=== PATIENT | female | born 1980 | race Caucasian/White ===

== ENCOUNTER 2021-12-05 15:42 | Inpatient (IN) ==
[2021-12-05] MEDS ORDERED: ZOFRAN INJ 4 MG VIAL IVP ONE ×2 (15:57→17:51)
[2021-12-05] MEDS ORDERED: NS 1,000 ML IV 1,000 ML IV ONE (15:57)
[2021-12-05] MEDS ORDERED: ZOFRAN INJ 4 MG VIAL ONE ×2 (15:59→17:45)
[2021-12-05] MEDS ORDERED: NS 1,000 ML IV 1,000 ML ONE (15:59)
[2021-12-05] MEDS ORDERED: DEMEROL INJ IVP ONE (16:06)
--- NOTE | 2021-12-05 16:06 | DR.NAUSEAF ---
HPI Time Seen Time Seen by Provider: 12/05/21 16:04 Primary Care Physician Primary Care Physician: Rodrick [place] Complaints Chief Complaint Doctors Comments: NAUSEA AND VOMITING WITH EPIGASTRIC PAIN RADIATING TO R SHOULDER FOR 2 WEEKS. WAS GIVEN TORADOL AND PHERGAN IN PCP OFFICE TODAY WITH NO RELIEF Chief Complaint:: Pt c/o nausea x 2 weeks. She states she began vomiting and having pain in chest through to back between shoulders x 2 days ago. Pt was seen by pcp this am and given toradol and phenergan im. COVID-19 Coronavirus risk:travel/contact w/high risk person: No Has patient experienced Coronavirus symptoms: No Source History Provided: Patient Mode of Arrival Mode of Arrival: Ambulatory Timing Onset of Chief Complaint: 12/04/21 PMH PMH Past Medical History: Yes Past Medical History: Hypertension Past Surgical History: Yes Surgical History: and Tonsillectomy Family History History of Family Medical Conditions: Yes Family Medical History: Coronary Artery Disease Social History Does patient currently use any type of tobacco product: No Have you used tobacco products in the last 12 months: No Type of Tobacco Use: None Does any household member use tobacco: No Alcohol Use: Occasionally Do you use any recreational Drugs:: No Lives With: Family Lives Where: Home Travel Risk Coronavirus risk:travel/contact w/high risk person: No Has patient experienced Coronavirus symptoms: No Infectious screening In the last 2 months have you had wt loss of >10#?: NO Have you had fever, night sweats or hemotysis?: No Have you traveled outside the country in the last 6 months?: No Isolation: Standard PE Vital Signs Vitals: Temperature 98.2 F Pulse Rate 62 Respiratory Rate 20 Blood Pressure 176/104 O2 Sat by Pulse Oximetry 99 General General Appearance: Alert, In No Apparent Distress and In Distress (SEVERE DIST RESS) Head Head Exam: Normal Inspection Eyes Eye exam: Normal Appearance ENT ENT Exam: Normal Exam Neck Neck Exam: Normal Inspection Chest Chest Inspection: Normal Inspection Respiratory Respiratory Exam: Normal Lung Sounds Bilat Respiratory Exam: Bilateral: Clear to Auscultation Cardiovascular Cardiovascular Exam: Regular Rate and Normal Rhythm Abdominal Exam Abdominal Exam: Normal Inspection, Normal Bowel Sounds, Soft and Tenderness (TENDERNESS UPON PALPATION OF EPIGASTRIUM) Rectal Rectal Exam: Deferred External Exam: Female: Deferred : Speculum Exam (Female): Deferred : Bimanual Exam (female): Deferred Extremities Extremities Exam: Normal Inspection Back Back Exam: Normal Inspection Neurologic Neurological Exam: Alert and Oriented X3 Psychiatric Psychiatric Exam: Normal Affect and Normal Mood Skin Skin Exam: Warm, Dry, Intact and Normal Color MDM Additional Information Obtained Additional Findings:: ABDOMINAL PAIN, PANCREATITIS,ANTHRITIS Differential Diagnosis Differential Diagnosis: Considerations may Include:: Gastritis, Pancreatitis and Other (ANTHRITIS,GASTRITIS,PANCREATITIS,INTRACTABLE NAUSEA AND VOMITING) COURSE Treatment Treatment: PATIENT CONTINUED TO HAVE INTRACTABLE NAUSEA AND VOMITING AND ABDOMINAL PAIN. WAS GIVEN 6MG OF MSO4 AND 25MG OF DEMEROL WITH SOME RELIEF OF PAIN. WAAS GIVEN ZOFRAN 8MG IV AND PHENERGAN 25MG IM FOR NAUSEA WITH SOME RELIEF. AMYLASE AND LIPASE WERE ELEVATED AND ULTRASOUND OF GALLBLADDER DID NOT SHOW STONES. CT OF ABD AND PELVIS SHOWED SEVERE ANTHRITIS AND SWELLING OF GALLBLADDER. CONTACT WAS MADE WITH DR WELLINGTON MORAN AND HE STATED TO ADMIT THE PATIENT FOR PANCREATITIS AND KEEP NPO AND GIVE PROTONIX 40 MG IV Q 12 HOURS AND GIVE MEDICATIONS FOR PAIN AND NAUSEA AND HE WILL PROBABLY SCOPE THE PATIENT TOMORROW. ROR Labs Reviewed Laboratory Results Reviewed?: Yes Result Diagrams: 12/05/21 16:07 12/05/21 16:07 Laboratory: WBC 11.1 X10^3/uL (3.6-10.0) H 12/05/21 16:07 RBC 5.48 X10^6/uL (3.5-5.4) H 12/05/21 16:07 Hgb 16.7 g/dL (12.0-16.0) H 12/05/21 16:07 Hct 47.0 % (36.0-47.0) 12/05/21 16:07 MCV 85.7 fL (80.0-100.0) 12/05/21 16:07 MCH 30.4 pg (27.0-34.0) 12/05/21 16:07 MCHC 35.5 g/dL (33.0-35.0) H 12/05/21 16:07 RDW 13.1 % (11.6-16.5) 12/05/21 16:07 Plt Count 196 X10^3/uL (150.0-450.0) 12/05/21 16:07 MPV 10.2 fL (7.4-11.0) 12/05/21 16:07 Neut % (Auto) 62.7 % (42.0-75.0) 12/05/21 16:07 Lymph % (Auto) 25.2 % (21.0-51.0) 12/05/21 16:07 Kern % (Auto) 10.7 % (0.0-13.0) 12/05/21 16:07 Eos % (Auto) 0.8 % (0.9-2.9) L 12/05/21 16:07 Baso % (Auto) 0.6 % (0.2-1.0) 12/05/21 16:07 Neut # (Auto) 7.0 x10^3/uL (2.2-4.8) H 12/05/21 16:07 Lymph # (Auto) 2.8 X10^3/uL (1.3-2.9) 12/05/21 16:07 Kern # (Auto) 1.2 x10^3/uL (0.3-0.8) H 12/05/21 16:07 Eos # (Auto) 0.1 x10^3/uL (0.0-0.2) 12/05/21 16:07 Baso # (Auto) 0.1 X10^3/uL (0.0-0.1) 12/05/21 16:07 Absolute Nucleated RBC 0.2 /100WBC 12/05/21 16:07 Sodium 139 mmol/L (136-145) 12/05/21 16:07 Corrected Sodium TNP 12/05/21 16:07 Potassium 3.3 mmol/L (3.5-5.1) L 12/05/21 16:07 Chloride 102 mmol/L (98-107) 12/05/21 16:07 Carbon Dioxide 25.9 mmol/L (21-32) 12/05/21 16:07 BUN 14 mg/dL (7-18) 12/05/21 16:07 Creatinine 1.05 mg/dL (0.55-1.02) H 12/05/21 16:07 Est GFR (MDRD) Af Amer > 60 (>60) 12/05/21 16:07 Est GFR (MDRD) Non-Af > 60 (>60) 12/05/21 16:07 Glucose 94 mg/dL (65-99) 12/05/21 16:07 Calcium 9.6 mg/dL (8.5-10.1) 12/05/21 16:07 Corrected Calcium TNP 12/05/21 16:07 Total Bilirubin 0.50 mg/dL (0.2-1.0) 12/05/21 16:07 AST 16 Units/L (15-37) 12/05/21 16:07 ALT 17 Units/L (12-78) 12/05/21 16:07 Alkaline Phosphatase 86 Units/L (46-116) 12/05/21 16:07 Total Protein 7.8 g/dL (6.4-8.2) 12/05/21 16:07 Albumin 4.0 g/dL (3.4-5.0) 12/05/21 16:07 Globulin 3.8 g/dL (2.5-4.5) 12/05/21 16:07 Albumin/Globulin Ratio 1.1 Ratio (1.1-2.1) 12/05/21 16:07 Amylase 472 Units/L (25-115) H 12/05/21 16:07 Lipase 3203 Units/L (73-393) H 12/05/21 16:07 HCG, Qual Negative <10 mIU/mL 12/05/21 15:07 Opioid Opioid Risk Tool Age (Bud box if 16-45): No History of Preadolescent Sexual Abuse: No Total: 0 Total Score Risk Category: Low Risk Copyright: Mccrary predicting aberrant behaviors Diagnosis Discharge Problem: Nausea and vomiting in adult patient Acute pancreatitis Qualifiers: Qualified Code(s): K85.90 - Acute pancreatitis without necrosis or infection, unspecified Acute antritis Qualifiers: Recurrence: not specified as recurrent Qualified Code(s): J01.00 - Acute maxillary sinusitis, unspecified
[2021-12-05] MEDS ORDERED: DEMEROL INJ ONE (16:08)
[2021-12-05 16:27] LABS: BASOPHILS # (AUTO) 0.1 X10^3/uL (0.0-0.1); BASOPHILS % (AUTO) 0.6 % (0.2-1.0); EOSINOPHILS # (AUTO) 0.1 x10^3/uL (0.0-0.2); EOSINOPHILS % (AUTO) 0.8 % (0.9-2.9); HEMOGLOBIN 16.7 g/dL (12.0-16.0); LYMPHOCYTES # (AUTO) 2.8 X10^3/uL (1.3-2.9); LYMPHOCYTES % (AUTO) 25.2 % (21.0-51.0); MEAN CORPUSCULAR HEMOGLOBIN 30.4 pg (27.0-34.0); MEAN CORPUSCULAR HGB CONC 35.5 g/dL (33.0-35.0); MEAN CORPUSCULAR VOLUME 85.7 fL (80.0-100.0); MEAN PLATELET VOLUME 10.2 fL (7.4-11.0); MONOCYTES # (AUTO) 1.2 x10^3/uL (0.3-0.8); MONOCYTES % (AUTO) 10.7 % (0.0-13.0); NEUTROPHILS % (AUTO) 62.7 % (42.0-75.0); RED BLOOD COUNT 5.48 X10^6/uL (3.5-5.4); RED CELL DISTRIBUTION WIDTH 13.1 % (11.6-16.5); WHITE BLOOD COUNT 11.1 X10^3/uL (3.6-10.0)
[2021-12-05 16:33] LABS: SERUM PREGNANCY TEST, QUAL NEGATIVE <10 mIU/mL
[2021-12-05 16:35] LABS: ALANINE AMINOTRANSFERASE 17 Units/L (12-78); ALKALINE PHOSPHATASE 86 Units/L (46-116); AMYLASE 472 Units/L (25-115); ASPARTATE AMINO TRANSFERASE 16 Units/L (15-37); BLOOD UREA NITROGEN 14 mg/dL (7-18); CALCIUM 9.6 mg/dL (8.5-10.1); CARBON DIOXIDE 25.9 mmol/L (21-32); CHLORIDE 102 mmol/L (98-107); CREATININE 1.05 mg/dL (0.55-1.02); SODIUM 139 mmol/L (136-145); TOTAL PROTEIN 7.8 g/dL (6.4-8.2); eGFR NON BLACK RACES > 60 (>60)
[2021-12-05 16:48] LABS: LIPASE 3203 Units/L (73-393)
--- NOTE | 2021-12-05 17:07 | US ---
GALL BLADDERHISTORY: Abdominal painComparison: NoneTechnique: Multiple valdovinos scale and color flow Doppler images of the abdomen were obtained.Findings:Overall study is limited by overlying bowel gas. The liver is normal in echotexture and size. Small hypoechoic focus in the right liver measuring 10 mm. No intrahepatic bile duct dilatation. No gallstones.No pericholecystic fluid or gallbladder wall thickening. The technologist did not report a positive sonographic Mcdermott's sign. The common bile duct measures 2 mm.The right kidney measures 10.0 cm. No focal mass, hydronephrosis, or stones identified.IMPRESSION:1.Small hypoechoic focus in the right liver which is likely a hemangioma. This could be evaluated on a nonemergent outpatient basis by MRI.Electronically signed by: VINCENT BURGER (December 05, 2021 17:05:59)
[2021-12-05] MEDS ORDERED: MORPHINE SULFATE INJ 2 MG INJ ONE ×2 (17:45→20:16)
[2021-12-05] MEDS ORDERED: MORPHINE SULFATE INJ 2 MG INJ IVP ONE ×2 (17:50→20:14)
[2021-12-05] MEDS ORDERED: NS 100 ML IV 100 ML ONE (17:50)
--- NOTE | 2021-12-05 18:42 | CT ---
HISTORYRUQ PAINSTUDYABDOMEN/PELVIS WITH CONCOMPARISONTECHNIQUEMultiple axial images of the abdomen and pelvis were obtained from the lung bases to the pubic symphysis after the administration of IV contrast. Dose reduction techniques including Automated Exposure Control (AEC) and adjustment of mA and kV were utilized.FINDINGSThe visualized portions of the lung bases are unremarkable . The liver reveals a few low attenuated probable hepatic cysts. 1 May represent and hemangioma within the inferior aspect of the left hepatic lobe measuring approximately 1 centimeter. Spleen, pancreas, kidneys, and adrenal glands are unremarkable in their CT appearance. The gallbladder is distended.There is mild mesenteric lymphadenopathy. No free fluid or free air is seen within the abdomen. There is edema and thickening of the myers of the distal stomach and gastric antrum.. There is diverticular disease scattered throughout the colon without evidence for acute diverticulitis. The appendix is unremarkable. There are few shotty right lower quadrant lymph nodes noted. There is a prominent uterus which is lobular in contour consistent with probable underlying myomas. Both adnexa are mildly prominent in size with an involuting left adnexal cyst. The left adnexa measures approximately 4.4 centimeters x 3.2 centimeters with the right adnexa measuring approximately 3 centimeters. The urinary bladder is grossly unremarkable. There is a small umbilical hernia with only herniation of omental fat through the defect. There is a left hemipelvic phlebolith. The bony structures are grossly intact.IMPRESSION1. Significant thickening and edema of the distal stomach and gastric antral myers concerning for severe antritis. The patient may benefit from upper endoscopy.2. Scattered diverticular disease without evidence for acute diverticulitis.3. Bilateral prominent adnexa within involuting left adnexal cyst and probable underlying myomas of the uterus.Electronically signed by: Thuy Montenegro (December 05, 2021 18:40:32)
[2021-12-05] MEDS ORDERED: PHENERGAN INJ 25 MG IM ONE ×2 (20:15→20:16)
[2021-12-05] MEDS: DEMEROL INJ IVP PRN (23:47)
[2021-12-05] MEDS: NS + KCL 40 MEQ/L 1,000 ML IV SCH (23:47)
[2021-12-05] MEDS: ZOFRAN INJ 4 MG VIAL IVP PRN (23:47)
[2021-12-06 00:10] VITALS: BMI 26.3
[2021-12-06] MEDS: DEMEROL INJ IVP PRN ×3 (03:27→20:03)
[2021-12-06 06:39] LABS: BASOPHILS % (AUTO) 0.4 % (0.2-1.0); EOSINOPHILS % (AUTO) 0.2 % (0.9-2.9); HEMATOCRIT 43.8 % (36.0-47.0); HEMOGLOBIN 15.3 g/dL (12.0-16.0); LYMPHOCYTES # (AUTO) 1.7 X10^3/uL (1.3-2.9); MEAN CORPUSCULAR HGB CONC 34.9 g/dL (33.0-35.0); MEAN CORPUSCULAR VOLUME 85.8 fL (80.0-100.0); MEAN PLATELET VOLUME 10.9 fL (7.4-11.0); MONOCYTES # (AUTO) 0.9 x10^3/uL (0.3-0.8); MONOCYTES % (AUTO) 7.3 % (0.0-13.0); NEUTROPHILS # (AUTO) 10.1 x10^3/uL (2.2-4.8); NEUTROPHILS % (AUTO) 79.1 % (42.0-75.0); RED BLOOD COUNT 5.11 X10^6/uL (3.5-5.4); RED CELL DISTRIBUTION WIDTH 13.5 % (11.6-16.5); WHITE BLOOD COUNT 12.8 X10^3/uL (3.6-10.0)
[2021-12-06 06:49] LABS: ALANINE AMINOTRANSFERASE 16 Units/L (12-78); ALBUMIN 3.5 g/dL (3.4-5.0); ALKALINE PHOSPHATASE 82 Units/L (46-116); AMYLASE 139 Units/L (25-115); ASPARTATE AMINO TRANSFERASE 16 Units/L (15-37); BLOOD UREA NITROGEN 10 mg/dL (7-18); CALCIUM 8.5 mg/dL (8.5-10.1); CHLORIDE 108 mmol/L (98-107); COR NA(FOR HYPERGLY) 142 mmol/L (136-145); CREATININE 0.89 mg/dL (0.55-1.02); LIPASE 317 Units/L (73-393); SODIUM 142 mmol/L (136-145); eGFR NON BLACK RACES > 60 (>60)
[2021-12-06] MEDS: PHENERGAN INJ 25 MG IM PRN ×2 (07:13→21:04)
[2021-12-06] MEDS: NS + KCL 40 MEQ/L 1,000 ML IV SCH ×3 (07:13→23:10)
[2021-12-06] MEDS: PROTONIX INJ 40 MG VIAL IVP SCH ×2 (08:23→21:04)
[2021-12-06] MEDS ORDERED: BENTYL I.M. INJ 10 MG IM ONE (12:11)
[2021-12-06] MEDS ORDERED: BENADRYL INJ 50 MG VIAL IVP ONE (12:12)
--- NOTE | 2021-12-06 13:30 | DR.H&P ---
H&P - History & Physical for Day of: H&P Date: 12/05/21 - Chief Complaint Chief Complaint: ABDOMINAL PAIN, N/V - History of Present Illness History of Present Illness: Pt is 41 WF, ER admission with c/o nausea x 2 weeks. She states she began vomiting and having pain in chest through to back between shoulders x 2 days ago. Pt was seen by pcp this am and given toradol and phenergan im without improvement. Pt denies any history of GERD or alcohol use. Pt reports she had been taking Diclofenac po for back pain for approx, 2-3 weeks. Pt denies any change in bowel habits. Pt's CT obtain in ER revealed gastritis and she had elevate amylase and lipase consistent with acute pancreatitis. Pt admitted for treament of acute illness. - Past Medical History Past Medical History: Arthritis - Past Surgical History Surgical History: , Tonsillectomy - Family History Family Medical History: Diabetes Mellitus, Cancer, [place] - Social History Does patient currently use any type of tobacco product: No Have you used tobacco products in the last 12 months: No Type of Tobacco Use: None Does any household member use tobacco: No Alcohol Use: Occasionally - Medications Home Medications: No Known Drug Allergies Allergy (Verified 12/05/21 16:10) CONTINUE taking the following medications diclofenac sodium 75 mg PO BID PRN 12/06/21 [History] - Review of Systems Constitutional: Weakness Eyes: No Symptoms Reported ENT: No Symptoms Reported Respiratory: No Symptoms Reported Cardiovascular: No Symptoms Reported Gastrointestinal: Nausea, Vomiting, Abdominal Pain Genitourinary: No Symptoms Reported Musculoskeletal: Back Pain (mid-back pain) Skin: No Symptoms Reported Neurological: No Symptoms Reported - Physical Exam Vital Signs: Temperature 97.8 F Pulse Rate [Left Radial] 61 Pulse Rate 62 Respiratory Rate 20 Blood Pressure [Left Arm] 141/97 Blood Pressure 176/104 O2 Sat by Pulse Oximetry 98 Oriented: Normal Eyes: Normal Ear: Normal Nose: Normal Throat: Normal Respiratory: Clear Throughout Cardiovascular: Normal : Normal Auscultation: Bowel Sounds: Normal Palpation: Normal Tenderness: RUQ, LUQ, Epigastric Skin: Normal Musculoskeletal: Back:Lumbar Psychiatric: Anxiety Affect: Anxious Speech Pattern: Clear, Appropriate - Assessment/Plan (1) Acute pancreatitis Qualifiers: Qualified Code(s): K85.90 - Acute pancreatitis without necrosis or infection, unspecified Status: Acute Plan: ADMIT, NPO. GENTLE IV HYDRATION, PPI THERAPY WITH PROTONIX BID. PAIN AND NAUSEA CONTROL. VERIFY HOME MEDICATION. CT ABD/PELVIS OBTAINED IN ER, GB US OBTAINED IN ER (2) Acute antritis Qualifiers: Recurrence: not specified as recurrent Qualified Code(s): J01.00 - Acute maxillary sinusitis, unspecified Status: Acute - Allergies Allergies/Adverse Reactions: Allergies Allergy/AdvReac Type Severity Reaction Status Date / Time No Known Drug Allergies Allergy Verified 12/05/21 16:10
[2021-12-07] MEDS: DEMEROL INJ IVP PRN ×3 (00:11→10:02)
[2021-12-07] MEDS: NS + KCL 40 MEQ/L 1,000 ML IV SCH ×2 (05:32→07:15)
[2021-12-07] MEDS: ZOFRAN INJ 4 MG VIAL IVP PRN (05:33)
[2021-12-07 05:58] LABS: BASOPHILS # (AUTO) 0.1 X10^3/uL (0.0-0.1); BASOPHILS % (AUTO) 0.6 % (0.2-1.0); EOSINOPHILS # (AUTO) 0.3 x10^3/uL (0.0-0.2); EOSINOPHILS % (AUTO) 2.5 % (0.9-2.9); HEMATOCRIT 40.4 % (36.0-47.0); HEMOGLOBIN 14.2 g/dL (12.0-16.0); LYMPHOCYTES # (AUTO) 2.1 X10^3/uL (1.3-2.9); LYMPHOCYTES % (AUTO) 19.2 % (21.0-51.0); MEAN CORPUSCULAR HEMOGLOBIN 30.4 pg (27.0-34.0); MEAN CORPUSCULAR VOLUME 86.8 fL (80.0-100.0); MEAN PLATELET VOLUME 10.4 fL (7.4-11.0); MONOCYTES # (AUTO) 0.9 x10^3/uL (0.3-0.8); NEUTROPHILS # (AUTO) 7.5 x10^3/uL (2.2-4.8); NEUTROPHILS % (AUTO) 69.7 % (42.0-75.0); RED BLOOD COUNT 4.65 X10^6/uL (3.5-5.4); RED CELL DISTRIBUTION WIDTH 13.1 % (11.6-16.5); WHITE BLOOD COUNT 10.7 X10^3/uL (3.6-10.0)
[2021-12-07 06:07] LABS: ALANINE AMINOTRANSFERASE 13 Units/L (12-78); ALBUMIN 3.1 g/dL (3.4-5.0); ALKALINE PHOSPHATASE 74 Units/L (46-116); AMYLASE 119 Units/L (25-115); ASPARTATE AMINO TRANSFERASE 18 Units/L (15-37); BLOOD UREA NITROGEN 7 mg/dL (7-18); CALCIUM 8.1 mg/dL (8.5-10.1); CARBON DIOXIDE 25.3 mmol/L (21-32); CHLORIDE 106 mmol/L (98-107); COR CA(FOR HYPOALB) 8.8 mg/dL (8.5-10.1); CREATININE 0.74 mg/dL (0.55-1.02); LIPASE 252 Units/L (73-393); SODIUM 138 mmol/L (136-145); TOTAL PROTEIN 6.2 g/dL (6.4-8.2); eGFR NON BLACK RACES > 60 (>60)
[2021-12-07] MEDS: PROTONIX INJ 40 MG VIAL IVP SCH (09:51)
[2021-12-07] MEDS: PHENERGAN INJ 25 MG IM PRN (10:02)
[2021-12-07] MEDS ORDERED: LEVSIN/MAALOX/LIDOC VISC PO SCH (11:00)
[2021-12-07] MEDS ORDERED: BENTYL CAP 10 MG PO PRN (11:54)
[2021-12-07 12:15] VITALS: BP 118/77
[2021-12-07] MEDS ORDERED: BENTYL CAP 10 MG PO ONE (14:19)
[2021-12-07] MEDS ORDERED: PROTONIX TAB 40 MG PO ONE (14:20)
[2021-12-07] MEDS ORDERED: PHENERGAN TAB 25 MG PO ONE (14:20)
--- NOTE | 2022-01-09 11:30 | DR.NAUSEAF ---
HPI Time Seen Time Seen by Provider: 12/05/21 16:04 Primary Care Physician Primary Care Physician: SHOSHANA ZENDEJAS Complaints Chief Complaint Doctors Comments: NAUSEA AND VOMITING FOR 2 WEEKS Chief Complaint:: Pt c/o nausea x 2 weeks. She states she began vomiting and having pain in chest through to back between shoulders x 2 days ago. Pt was seen by pcp this am and given toradol and phenergan im. COVID-19 Coronavirus risk:travel/contact w/high risk person: No Has patient experienced Coronavirus symptoms: No Source History Provided: Patient Mode of Arrival Mode of Arrival: Ambulatory Timing Onset of Chief Complaint: 12/04/21 PMH PMH Past Medical History: Yes Past Medical History: Arthritis Past Surgical History: Yes Surgical History: and Tonsillectomy Family History History of Family Medical Conditions: Yes Family Medical History: Diabetes Mellitus, Cancer and [place] Social History Does patient currently use any type of tobacco product: No Have you used tobacco products in the last 12 months: No Type of Tobacco Use: None Does any household member use tobacco: No Alcohol Use: Occasionally Do you use any recreational Drugs:: No Lives With: Family Lives Where: Home Travel Risk Coronavirus risk:travel/contact w/high risk person: No Has patient experienced Coronavirus symptoms: No Infectious screening In the last 2 months have you had wt loss of >10#?: NO Have you had fever, night sweats or hemotysis?: No Have you traveled outside the country in the last 6 months?: No Isolation: Standard ROS Review of Systems Constitutional: No Symptoms Reported Eyes: No Symptoms Reported ENTM: No Symptoms Reported Respiratoy: No Symptoms Reported Cardiovascular: No Symptoms Reported Gastrointestinal/Abdominal: Abdominal Pain, Nausea and Vomiting Genitourinary: No Symptoms Reported Neurological: No Symptoms Reported Musculoskeletal: No Symptoms Reported Integumentary: No Symptoms Reported Hematologic/Lymphatic: No Symptoms Reported Endocrine: No Symptoms Reported Psychiatric: No Symptoms Reported All Other Systems: Reviewed and Negative PE Vital Signs Vitals: Temperature 98.2 F Pulse Rate 62 Respiratory Rate 20 Blood Pressure 176/104 O2 Sat by Pulse Oximetry 99 General Limitations: No Limitations General Appearance: Alert and In Distress (MODERATE DISTRESS) Head Head Exam: Normal Inspection Eyes Eye exam: Normal Appearance ENT ENT Exam: Normal Exam Neck Neck Exam: Normal Inspection Chest Chest Inspection: Normal Inspection Respiratory Respiratory Exam: Normal Lung Sounds Bilat Respiratory Exam: Bilateral: Clear to Auscultation Cardiovascular Cardiovascular Exam: Regular Rate and Normal Rhythm Abdominal Exam Abdominal Exam: Normal Inspection, Normal Bowel Sounds, Soft and Tenderness (TENDER IN EPIGASTRIUM) Abdominal Tenderness: Epigastrium Rectal Rectal Exam: Deferred External Exam: Female: Deferred : Speculum Exam (Female): Deferred : Bimanual Exam (female): Deferred Extremities Extremities Exam: Normal Inspection Back Back Exam: Normal Inspection Neurologic Neurological Exam: Alert and Oriented X3 Psychiatric Psychiatric Exam: Normal Affect and Normal Mood Skin Skin Exam: Warm, Dry, Intact and Normal Color MDM Additional Information Obtained Additional Findings:: GASTRITIS,PANCREATITIS,GASTROENTERITIS Differential Diagnosis Differential Diagnosis: Considerations may Include:: Gastritis, Gastroenteritis and Pancreatitis COURSE Treatment Treatment: PATIENT REMAINED STABLEDURINGER EVALUATION.WASFOUND TO HAVE LEUNG CREATITIS ON LAB EVALUATION. WILL BE TREATED AN INPATIENT FOR PANCREATITIS. ROR Labs Reviewed Laboratory Results Reviewed?: Yes Result Diagrams: 12/07/21 05:20 12/07/21 05:20 Laboratory: WBC 11.1 X10^3/uL (3.6-10.0) H 12/05/21 16:07 RBC 5.48 X10^6/uL (3.5-5.4) H 12/05/21 16:07 Hgb 16.7 g/dL (12.0-16.0) H 12/05/21 16:07 Hct 47.0 % (36.0-47.0) 12/05/21 16:07 MCV 85.7 fL (80.0-100.0) 12/05/21 16:07 MCH 30.4 pg (27.0-34.0) 12/05/21 16:07 MCHC 35.5 g/dL (33.0-35.0) H 12/05/21 16:07 RDW 13.1 % (11.6-16.5) 12/05/21 16:07 Plt Count 196 X10^3/uL (150.0-450.0) 12/05/21 16:07 MPV 10.2 fL (7.4-11.0) 12/05/21 16:07 Neut % (Auto) 62.7 % (42.0-75.0) 12/05/21 16:07 Lymph % (Auto) 25.2 % (21.0-51.0) 12/05/21 16:07 Foster % (Auto) 10.7 % (0.0-13.0) 12/05/21 16:07 Eos % (Auto) 0.8 % (0.9-2.9) L 12/05/21 16:07 Baso % (Auto) 0.6 % (0.2-1.0) 12/05/21 16:07 Neut # (Auto) 7.0 x10^3/uL (2.2-4.8) H 12/05/21 16:07 Lymph # (Auto) 2.8 X10^3/uL (1.3-2.9) 12/05/21 16:07 Foster # (Auto) 1.2 x10^3/uL (0.3-0.8) H 12/05/21 16:07 Eos # (Auto) 0.1 x10^3/uL (0.0-0.2) 12/05/21 16:07 Baso # (Auto) 0.1 X10^3/uL (0.0-0.1) 12/05/21 16:07 Absolute Nucleated RBC 0.2 /100WBC 12/05/21 16:07 Sodium 139 mmol/L (136-145) 12/05/21 16:07 Corrected Sodium TNP 12/05/21 16:07 Potassium 3.3 mmol/L (3.5-5.1) L 12/05/21 16:07 Chloride 102 mmol/L (98-107) 12/05/21 16:07 Carbon Dioxide 25.9 mmol/L (21-32) 12/05/21 16:07 BUN 14 mg/dL (7-18) 12/05/21 16:07 Creatinine 1.05 mg/dL (0.55-1.02) H 12/05/21 16:07 Est GFR (MDRD) Af Amer > 60 (>60) 12/05/21 16:07 Est GFR (MDRD) Non-Af > 60 (>60) 12/05/21 16:07 Glucose 94 mg/dL (65-99) 12/05/21 16:07 Calcium 9.6 mg/dL (8.5-10.1) 12/05/21 16:07 Corrected Calcium TNP 12/05/21 16:07 Total Bilirubin 0.50 mg/dL (0.2-1.0) 12/05/21 16:07 AST 16 Units/L (15-37) 12/05/21 16:07 ALT 17 Units/L (12-78) 12/05/21 16:07 Alkaline Phosphatase 86 Units/L (46-116) 12/05/21 16:07 Total Protein 7.8 g/dL (6.4-8.2) 12/05/21 16:07 Albumin 4.0 g/dL (3.4-5.0) 12/05/21 16:07 Globulin 3.8 g/dL (2.5-4.5) 12/05/21 16:07 Albumin/Globulin Ratio 1.1 Ratio (1.1-2.1) 12/05/21 16:07 Amylase 472 Units/L (25-115) H 12/05/21 16:07 Lipase 3203 Units/L (73-393) H 12/05/21 16:07 HCG, Qual Negative <10 mIU/mL 12/05/21 15:07 SARS-CoV-2 (PCR) Negative (NEGATIVE) 12/05/21 22:02 Other Results Comments: LIPASE AND AMYLASE WERE VERY ELEVATED. Opioid Opioid Risk Tool Age (Bud box if 16-45): No History of Preadolescent Sexual Abuse: No Total: 0 Total Score Risk Category: Low Risk Copyright: Mccrary predicting aberrant behaviors Diagnosis Discharge Problem: Nausea and vomiting in adult patient Acute pancreatitis Qualifiers: Qualified Code(s): K85.90 - Acute pancreatitis without necrosis or infection, unspecified Acute antritis Qualifiers: Recurrence: not specified as recurrent Qualified Code(s): J01.00 - Acute maxillary sinusitis, unspecified Instructions Instructions: Acute Pancreatitis, [id number] Pancreatitis Eating Plan Nausea and Vomiting, Adult, [id number] Forms: Excuse From Work or School Precautions for COVID19 [facility] Social Distancing
== END 2021-12-07 14:55 | disposition home or self-care (01) | DRG 440 ==
LOC: SUPCPDRO → ER 15:42 → MED/SURG 22:33
PROVIDERS: ADMIT Internal Medicine; ATTEND Internal Medicine
DX: Z20.822 Contact with and (suspected) exposure to COVID-19; M19.90 Unspecified osteoarthritis, unspecified site; R10.13 Epigastric pain; R11.2 Nausea with vomiting, unspecified; K29.60 Other gastritis without bleeding; K85.90 Acute pancreatitis without necrosis or infection, unspecified